=== PATIENT | male | born 1960 | race Caucasian/White ===

== ENCOUNTER 2017-02-25 16:53 | Emergency (ER) | payer OTHER ==
[~2017-02-25] VITALS: Ht 175.3 cm; Wt 90.7 kg
[2017-02-25 17:08] VITALS: BP_SYST 151
[2017-02-25 17:50] LABS: BASOPHILS # (AUTO) 0.2 K/uL (0.0-0.2); EOSINOPHILS # (AUTO) 0.2 K/uL (0.0-0.4); NEUTROPHILS # (AUTO) 9.3 K/uL (1.8-7.7); WHITE BLOOD COUNT (AUTO) 12.6 K/uL (4.8-10.8)
[2017-02-25 17:54] LABS: BASOPHILS % (AUTO) 1.3 % (0.0-2.0); EOSINOPHILS % (AUTO) 1.5 % (0.0-4.0); HEMATOCRIT 47.8 % (36-54); HEMOGLOBIN 15.9 g/dL (14.0-18.0); LYMPHOCYTES # (AUTO) 2.2 K/uL (1.0-5.5); LYMPHOCYTES % (AUTO) 17.6 % (20.5-51.5); MEAN CORPUSCULAR HEMOGLOBIN 28 pg (27-31); MEAN CORPUSCULAR HGB CONC 33 % (32-36); MEAN CORPUSCULAR VOLUME 85 fL (79.0-98.0); MONOCYTES # (AUTO) 0.7 K/uL (0.0-1.0); MONOCYTES % (AUTO) 5.4 % (1.7-9.3); NEUTROPHILS % (AUTO) 74.2 % (40.0-70.0); PLATELET COUNT (AUTO) 181 K/uL (130-430); RED CELL DISTRIBUTION WIDTH 12.2 % (9.0-15.0)
[2017-02-25 17:56] LABS: CALCIUM 8.3 mg/dL (8.4-11.0); CREATININE 1.17 mg/dL (0.55-1.30); POTASSIUM 3.9 mmol/L (3.5-5.1)
[2017-02-25 18:00] LABS: ALBUMIN 3.7 g/dL (3.4-4.8); TOTAL BILIRUBIN 0.6 mg/dL (0.0-1.0); TOTAL PROTEIN, SERUM 7.1 g/dL (6.4-8.3); URIC ACID 3.3 mg/dL (2.4-7.0)
[2017-02-25] MEDS ORDERED: KETOROLAC TROMETHAMINE 60 MG/2 ML VIAL IM ONE (18:00)
[2017-02-25] MEDS ORDERED: cefTRIAXone 1 GM VIAL IM ONE (18:15)
[2017-02-25] MEDS ORDERED: LIDOCAINE 1%, 20 ML MDV 20 ML ONE (18:33)
[2017-02-25 18:50] VITALS: BP_SYST 148
[2017-02-25 18:53] LABS: ERYTHROCYTE SEDIMENTATION RATE 1 MM/HR (0-15)
== END 2017-02-25 18:50 | disposition home or self-care (01) ==
LOC: SED 16:53
DX: L03.114 Cellulitis of left upper limb (principal); E11.9 Type 2 diabetes mellitus without complications; I10 Essential (primary) hypertension; F17.200 Nicotine dependence, unspecified, uncomplicated; Z88.1 Allergy status to other antibiotic agents
CPT/HCPCS: 36415; 73070; 80053; 84550; 85025; 85651; 87040; 96372; 99285; J0696; J1885; J2001

== ENCOUNTER 2017-03-11 18:57 | Inpatient (IN) | payer OTHER ==
[~2017-03-11] VITALS: Ht 175.3 cm; Wt 90.7 kg
[2017-03-11 19:02] VITALS: BP 129/84; PULSE 102; RESP 18; TEMP 97.3; O2SAT 96
--- NOTE | 2017-03-11 19:39 | NUR ---
Patient to ER bed 06 to gown for evaluation. Side rails up. Report given to Yessenia
--- NOTE | 2017-03-11 19:50 | NUR ---
ER at bedside examining patient.
--- NOTE | 2017-03-11 19:55 | NUR ---
PT IN BED 6 WITH C/O LEFT FOREARM PAIN AND SWELLING . DR PAREDES AWARE.
[2017-03-11 20:18] LABS: BASOPHILS % (AUTO) 0.5 % (0.0-2.0); EOSINOPHILS # (AUTO) 0.2 K/uL (0.0-0.4); EOSINOPHILS % (AUTO) 1.9 % (0.0-4.0); HEMATOCRIT 45.5 % (36-54); HEMOGLOBIN 15.3 g/dL (14.0-18.0); LYMPHOCYTES % (AUTO) 30.9 % (20.5-51.5); MEAN CORPUSCULAR HEMOGLOBIN 28 pg (27-31); MEAN CORPUSCULAR HGB CONC 34 % (32-36); MEAN CORPUSCULAR VOLUME 85 fL (79.0-98.0); MONOCYTES # (AUTO) 0.5 K/uL (0.0-1.0); MONOCYTES % (AUTO) 5.2 % (1.7-9.3); NEUTROPHILS # (AUTO) 6.1 K/uL (1.8-7.7); NEUTROPHILS % (AUTO) 61.5 % (40.0-70.0); PLATELET COUNT (AUTO) 264 K/uL (130-430); RED BLOOD CELL COUNT(AUTO) 5.39 MIL/uL (4.2-6.2); RED CELL DISTRIBUTION WIDTH 12.6 % (9.0-15.0); WHITE BLOOD COUNT (AUTO) 9.8 K/uL (4.8-10.8)
[2017-03-11 20:21] LABS: CALCIUM 8.7 mg/dL (8.4-11.0); CREATININE 1.21 mg/dL (0.55-1.30); POTASSIUM 4.1 mmol/L (3.5-5.1)
[2017-03-11 20:24] LABS: PROTHROMBIN TIME 10.4 SECS (9.5-12.5)
[2017-03-11 20:26] LABS: ALBUMIN 3.4 g/dL (3.4-4.8); TOTAL BILIRUBIN 0.2 mg/dL (0.0-1.0); TOTAL PROTEIN, SERUM 7.4 g/dL (6.4-8.3)
[2017-03-11] MEDS ORDERED: NACL 0.9% 1,000 ML IV ONE (20:30)
[2017-03-11] MEDS ORDERED: VANCOMYCIN HCL 1,000 MG in NS 250 ML IV ONE (20:30)
--- NOTE | 2017-03-11 21:30 | NUR ---
# 20 gauge angiocath placed to LAC. Use of asceptic technique. Opsite placed over site. Blood return noted. Blood for lab drawn from site. Flushed with 10 cc of normal saline. No evidence of infiltration noted. Patient tolerated well.
[2017-03-11] MEDS ORDERED: VANCOMYCIN HCL 1000 MG/VIAL IV ONE (21:35)
--- NOTE | 2017-03-11 22:28 | NUR ---
Patient will be admitted to care of Dr Yoon. Admitted to m/s unit. Will go to room 123a. Belongings list completed. Summary report printed. Report will be given at bedside.
--- NOTE | 2017-03-11 22:43 | NUR ---
ADMISSION: The patient, LAWRENCE ZAMAN, 56 y/o, M admitted by KEYONA TRAN MD, was given written information regarding hospital policies, unit procedures and contact persons.
--- NOTE | 2017-03-11 22:44 | NUR ---
CONSULTATION PAGED REASON FOR CONSULTATION:CELLULITIS WAS CONSULT CALLED?Y PERSON WHO WAS NOTIFIED:GHAZALA CONSULTING PHYSICIAN:MEGA ROE [employer] SPECIALTY:INFECTIOUS DISEASE [employer] PHONE NUMBER:[phone]
[2017-03-11 22:48] VITALS: BP 139/92; PULSE 87; RESP 18; TEMP 97.9; O2SAT 99
[2017-03-11] MEDS ORDERED: ACETAMINOPHEN 325 MG TABLET PO PRN (23:15)
[2017-03-12] MEDS ORDERED: NS 500 ML IV ONE
[2017-03-12] MEDS ORDERED: LEVOFLOXACIN 500 MG/D5W 100 ML IV SCH
--- NOTE | 2017-03-12 00:26 | NUR ---
Photo picture taken of left elbow arm areas , dx cellulitis .
--- NOTE | 2017-03-12 00:27 | NUR ---
BSG recheck 251 mg dl patient awake alert ambulatory .
--- NOTE | 2017-03-12 00:28 | NUR ---
Patient verbalize is non compliant with [facility] DM Diet at home & has SODA & CANDY before trip to ER , DR TRAN is aware .
[2017-03-12] MEDS ORDERED: LEVOFLOXACIN 500 MG/D5W 100 ML IV ONE (01:12)
[2017-03-12] MEDS: NACL 0.9% 1,000 ML IV SCH ×3 (01:18→14:41)
--- NOTE | 2017-03-12 04:04 | NUR ---
LEVAQUIN 500 MG IVPB administer as ordered no allergic reaction skin dry warm / .
[2017-03-12 04:15] VITALS: BP 134/56; PULSE 78; RESP 16; TEMP 97.6; O2SAT 95
[2017-03-12] MEDS: INSULIN REGULAR, HUMAN 100 UNITS/ML, 10 ML VIAL (novoLIN R) SUBCUT PRN ×4 (06:19→21:31)
--- NOTE | 2017-03-12 06:37 | NUR ---
BSG @ 266 dl this AM 6 units of Regular insulin sub q. administer , patient awake and alert / .
[2017-03-12 06:46] LABS: CALCIUM 8.2 mg/dL (8.4-11.0); CREATININE 0.94 mg/dL (0.55-1.30); POTASSIUM 4.4 mmol/L (3.5-5.1)
[2017-03-12 06:58] LABS: BASOPHILS % (AUTO) 0.4 % (0.0-2.0); EOSINOPHILS # (AUTO) 0.2 K/uL (0.0-0.4); HEMOGLOBIN 14.1 g/dL (14.0-18.0); LYMPHOCYTES # (AUTO) 2.6 K/uL (1.0-5.5); LYMPHOCYTES % (AUTO) 31.6 % (20.5-51.5); MEAN CORPUSCULAR HEMOGLOBIN 28 pg (27-31); MEAN CORPUSCULAR HGB CONC 33 % (32-36); MEAN CORPUSCULAR VOLUME 86 fL (79.0-98.0); MONOCYTES # (AUTO) 0.5 K/uL (0.0-1.0); PLATELET COUNT (AUTO) 277 K/uL (130-430); RED BLOOD CELL COUNT(AUTO) 4.98 MIL/uL (4.2-6.2); RED CELL DISTRIBUTION WIDTH 12.3 % (9.0-15.0); WHITE BLOOD COUNT (AUTO) 8.3 K/uL (4.8-10.8)
--- NOTE | 2017-03-12 07:23 | NUR ---
AM ROUNDS Pt A/O x4, denies pain at this time..IVF infusing well to LAC...Left elbow pinkish-reddish and warm to touch..Pt ambulates ad makenna with steady gait...Call light/phone w/in reach....Will cont to monitor
[2017-03-12 07:52] LABS: ERYTHROCYTE SEDIMENTATION RATE 3 MM/HR (0-15)
--- NOTE | 2017-03-12 10:10 | NUR ---
PT AMBULATING IN ROOM W/STEADY GAIT
--- NOTE | 2017-03-12 10:10 | NUR ---
DR TRAN DISCUSSING PLAN OF CARE WITH PT AND PTs DAUGHTER
[2017-03-12] MEDS ORDERED: LISINOPRIL 10 MG TABLET (PRINIVIL) PO ONE (10:45)
[2017-03-12] MEDS: VANCOMYCIN HCL 1,250 MG in NS 250 ML IV SCH ×2 (11:02→22:37)
[2017-03-12 11:33] VITALS: BP 141/83; PULSE 74; RESP 19; TEMP 99.1; O2SAT 97
--- NOTE | 2017-03-12 12:00 | NUR ---
PT AMBULATING IN HALLWAY WITH STEADY GAIT
--- NOTE | 2017-03-12 14:13 | NUR ---
PT AMBULATED TO RESTROOM WITH STEADY GAIT
--- NOTE | 2017-03-12 15:35 | NUR ---
NEW IV PLACED TO RFA 20g PER MRI..PLEASE RELOCATE IV ACCESS TO RIGHT ARM
--- NOTE | 2017-03-12 15:36 | NUR ---
PER DR CARR..UNABLE TO DO MRI DUE TO POSSIBLE METALLIC SHRAPNEL IN BUE. DUE TO PTS JOB DESCRIPTION...DR TRAN INFORMED...CT ORDERED INSTEAD..PT INFORMED
[2017-03-12 15:37] VITALS: BP 144/86; PULSE 82; RESP 16; TEMP 97.9; O2SAT 97
--- NOTE | 2017-03-12 16:08 | NUR ---
PT TRANSPORTED TO CT VIA WC PT STABLE UPON TRANSPORT
--- NOTE | 2017-03-12 17:01 | NUR ---
PT STABLE...AMBULATING IN ROOM WILL CONT TO MONITOR
[2017-03-12] MEDS: SIMVASTATIN 10 MG TABLET PO SCH (17:44)
[2017-03-12] MEDS: metFORMIN HCL 500 MG TABLET PO SCH (17:45)
[2017-03-12] MEDS ORDERED: LOVASTATIN 20 MG TABLET PO SCH (18:00)
--- NOTE | 2017-03-12 19:25 | NUR ---
initial nursing notes: Patient awake in bed. Patient has IV fluid infusing on the left AC IV access. Patient denies of having pain.
[2017-03-12 19:51] VITALS: BP 137/89; PULSE 67; RESP 17; TEMP 98.2; O2SAT 96
[2017-03-12] MEDS: LEVOFLOXACIN 500 MG/D5W 100 ML IV SCH (21:20)
[2017-03-12] MEDS: LACTOBACILLUS RHAMNOSUS GG 1 CAP CAPSULE PO SCH (21:22)
--- NOTE | 2017-03-12 21:25 | NUR ---
nursing rounds: Patient watching television. Will check patient's blood sugar.
--- NOTE | 2017-03-12 23:25 | NUR ---
nursing rounds: Patient asleep in bed. Patient has no shortness of breath.
[2017-03-13 00:30] VITALS: BP 137/77; PULSE 70; RESP 20; TEMP 98.2; O2SAT 98
--- NOTE | 2017-03-13 01:25 | NUR ---
nursing rounds: Patient sleeping in bed. Patient's breathing pattern is regular and unlabored.
--- NOTE | 2017-03-13 03:27 | NUR ---
nursing rounds: Patient asleep in bed. Patient has no respiratory distress.
[2017-03-13 04:08] VITALS: BP 127/87; PULSE 76; RESP 20; TEMP 98.7; O2SAT 96
--- NOTE | 2017-03-13 05:25 | NUR ---
nursing rounds: Patient calmly resting in bed. Call light within patient's reach.
[2017-03-13] MEDS: NACL 0.9% 1,000 ML IV SCH ×2 (06:16→16:47)
[2017-03-13] MEDS: INSULIN REGULAR, HUMAN 100 UNITS/ML, 10 ML VIAL (novoLIN R) SUBCUT PRN ×4 (06:19→21:48)
--- NOTE | 2017-03-13 07:25 | NUR ---
am rounds: patient awake ,lying on the bed. report given by night nurse myke. ivf on going at left ac intact. stable.
--- NOTE | 2017-03-13 07:32 | NUR ---
closing nursing notes: Patient is awake, alert and oriented X 4. Patient is in no acute respiratory distress. No episodes of fall and no injuries throughout the round boner. Provided nursing report to incoming morning shift nurse, MARYA Sheehan, at patient's bedside.
[2017-03-13 09:18] VITALS: BP 135/89; PULSE 78; RESP 19; TEMP 97.4; O2SAT 94
--- NOTE | 2017-03-13 09:20 | NUR ---
rounds: sitting on the chair. stable.
[2017-03-13] MEDS: LACTOBACILLUS RHAMNOSUS GG 1 CAP CAPSULE PO SCH ×2 (09:22→21:42)
[2017-03-13] MEDS: metFORMIN HCL 500 MG TABLET PO SCH ×2 (09:22→17:19)
[2017-03-13] MEDS: VANCOMYCIN HCL 1,250 MG in NS 250 ML IV SCH ×2 (09:23→22:48)
[2017-03-13] MEDS: LISINOPRIL 10 MG TABLET (PRINIVIL) PO SCH (09:28)
--- NOTE | 2017-03-13 11:30 | NUR ---
blood sugar: blood sugar taken,with insulin coverage given per sliding scale.
[2017-03-13 11:33] VITALS: BP 141/96; PULSE 71; RESP 19; TEMP 97.2; O2SAT 96
--- NOTE | 2017-03-13 13:42 | NUR ---
rounds: sitting on the chair. waiting for md to clear patient home.
--- NOTE | 2017-03-13 14:36 | NUR ---
SURGEON ROUNDS: PATIENT SEEN BY DR COLES WITH ORDERS FOR I&D OF LEFT FOREARM TOMORROW.NPO POST MIDNIGHT.CONSENT TO SIGN BY PATIENT.
[2017-03-13 15:41] VITALS: BP 141/88; PULSE 68; RESP 19; TEMP 98.4; O2SAT 98
--- NOTE | 2017-03-13 16:20 | NUR ---
rounds: watching tv.stable.
[2017-03-13] MEDS: SIMVASTATIN 10 MG TABLET PO SCH (17:23)
--- NOTE | 2017-03-13 17:25 | NUR ---
blood sugar: blood sugar taken,with insulin coverage given per sliding scale.
--- NOTE | 2017-03-13 18:25 | NUR ---
CLOSING NOTES: STABLE. HAD DINNER. STILL WITH MILD REDNESS AND SWELLING LEFT FOREARM. FOR I&D OF LEFT FOREARM BY DR COLES IN AM.
[2017-03-13 20:00] VITALS: BP 134/75; PULSE 66; RESP 18; TEMP 96.9; O2SAT 95
--- NOTE | 2017-03-13 20:00 | NUR ---
Initial PM Note Pt was received lying in bed fully AAO x4. No acute distress noted. Speech is clear and pt is able to make his needs known. Lt elbow swelling noted. Neurovascular checks to E are WNL. Pt is able to move his fingers freely and all his fingers are with good capillary refills. Pt denies pain or discomfort. Pt stated swelling is subsiding. Pt was instructed on nothing by mouth after midnight for surgery tomorrow and pt verbalized understanding. IVF of NS is infusing well in RAC at 100ml/hr without any signs of infiltration at the IV site. Skin is warm and dry to touch. No signs or symptoms of hypoglycemia or hyperglycemia noted. Fall and safety precautions are in place. Call light is with pt. Bed is in the lowest and locked positions. Pt was instructed to call for assistance as needed and pt verbalized understanding.
[2017-03-13] MEDS: LEVOFLOXACIN 500 MG/D5W 100 ML IV SCH (21:43)
--- NOTE | 2017-03-13 23:00 | NUR ---
Rounds Pt is sleeping comfortably in bed. Call light is with pt and IVF is infusing well.
[2017-03-14] VITALS (7 sets, daily range): BP systolic 132–149; BP diastolic 75–95; PULSE 60–78; RESP 18–19; TEMP 97.2–97.8; O2SAT 91–99; Ht 175.3 cm; Wt 90.7 kg
[2017-03-14] MEDS: NACL 0.9% 1,000 ML IV SCH ×3 (01:15→20:24)
--- NOTE | 2017-03-14 02:00 | NUR ---
Rounds Pt is sleeping comfortably in bed. IVF is infusing well.
--- NOTE | 2017-03-14 04:30 | NUR ---
Rounds Pt is sleeping without any distress noted. Call light is with pt and IVF is infusing well.
--- NOTE | 2017-03-14 06:49 | NUR ---
Closing Note Pt is resting comfortably in bed at this time. All pt's needs were attended to. No fall or injury noted this shift. Accucheck 238 this AM and sliding scale Insulin held due to NPO status. AM Glucotrol also held. Will endorse to day shift nurse.
[2017-03-14 07:29] LABS: BASOPHILS # (AUTO) 0.1 K/uL (0.0-0.2); BASOPHILS % (AUTO) 0.7 % (0.0-2.0); EOSINOPHILS # (AUTO) 0.2 K/uL (0.0-0.4); EOSINOPHILS % (AUTO) 3.1 % (0.0-4.0); HEMATOCRIT 40.8 % (36-54); LYMPHOCYTES # (AUTO) 2.3 K/uL (1.0-5.5); LYMPHOCYTES % (AUTO) 31.5 % (20.5-51.5); MEAN CORPUSCULAR HEMOGLOBIN 29 pg (27-31); MEAN CORPUSCULAR HGB CONC 34 % (32-36); MEAN CORPUSCULAR VOLUME 84 fL (79.0-98.0); MONOCYTES # (AUTO) 0.5 K/uL (0.0-1.0); MONOCYTES % (AUTO) 6.7 % (1.7-9.3); NEUTROPHILS # (AUTO) 4.1 K/uL (1.8-7.7); PLATELET COUNT (AUTO) 256 K/uL (130-430); RED BLOOD CELL COUNT(AUTO) 4.86 MIL/uL (4.2-6.2); WHITE BLOOD COUNT (AUTO) 7.2 K/uL (4.8-10.8)
[2017-03-14 07:41] LABS: CALCIUM 8.3 mg/dL (8.4-11.0); CREATININE 0.95 mg/dL (0.55-1.30); POTASSIUM 4.2 mmol/L (3.5-5.1)
[2017-03-14] MEDS: metFORMIN HCL 500 MG TABLET PO SCH ×2 (08:00→18:04)
[2017-03-14] MEDS: VANCOMYCIN HCL 1,250 MG in NS 250 ML IV SCH ×2 (08:52→22:04)
[2017-03-14] MEDS ORDERED: MIDAZOLAM HCL 5 MG/5 ML VIAL IVP ONE (09:00)
[2017-03-14] MEDS ORDERED: NS IRRIG SOLN 1000 ML IR ONE (09:00)
[2017-03-14] MEDS ORDERED: LR 1,000 ML IV.SOLN IV ONE (09:00)
[2017-03-14] MEDS ORDERED: PROPOFOL 200MG/ 20ML VIAL (DIPRIVAN) IV ONE (09:00)
[2017-03-14] MEDS: LACTOBACILLUS RHAMNOSUS GG 1 CAP CAPSULE PO SCH ×2 (09:00→20:23)
[2017-03-14] MEDS ORDERED: ONDANSETRON HCL 4 MG/2 ML VIAL IVP ONE (09:00)
[2017-03-14] MEDS ORDERED: VANCOMYCIN HCL 1000 MG/VIAL IV ONE (09:00)
[2017-03-14] MEDS ORDERED: NS 250 ML BAG IV ONE (09:00)
[2017-03-14] MEDS ORDERED: SEVOFLURANE 15 MIN GAS INH ONE (09:00)
[2017-03-14] MEDS ORDERED: fentaNYL CITRATE 250 MCG/5 ML AMP IV ONE (09:00)
--- NOTE | 2017-03-14 09:02 | NUR ---
Patient transported out to OR
[2017-03-14] MEDS ORDERED: HYDROmorphone 2 MG/ML VIAL IVP PRN (10:00)
[2017-03-14] MEDS ORDERED: HYDROmorphone 1 MG INJ. 1 MG/ML AMPUL IVP PRN ×2 (10:00)
[2017-03-14] MEDS ORDERED: NACL 0.9% 1,000 ML IV SCH (10:00)
[2017-03-14] MEDS ORDERED: METOCLOPRAMIDE HCL 10 MG/2 ML VIAL IVP PRN (10:00)
[2017-03-14] MEDS ORDERED: HYDROmorphone 1 MG INJ. 1 MG/ML AMPUL ONE (10:05)
--- NOTE | 2017-03-14 11:00 | NUR ---
Patient back from OR. stable, call light in reach.
--- NOTE | 2017-03-14 13:00 | NUR ---
Left arm dressing reinforced due to noted soilage with serosanguineous drainage.
[2017-03-14] MEDS: LISINOPRIL 10 MG TABLET (PRINIVIL) PO SCH (13:43)
[2017-03-14] MEDS: INSULIN REGULAR, HUMAN 100 UNITS/ML, 10 ML VIAL (novoLIN R) SUBCUT PRN ×3 (13:48→20:27)
--- NOTE | 2017-03-14 17:30 | NUR ---
Dinner provided. Pt tolerating diet well. Call light in reach.
[2017-03-14] MEDS: SIMVASTATIN 10 MG TABLET PO SCH (18:05)
--- NOTE | 2017-03-14 19:00 | NUR ---
Closng note Patient ambulating in the hallway and room, stable, non slip socks provided. Pt stable at this time. Will endorse report to daxa farias RN.
--- NOTE | 2017-03-14 20:00 | NUR ---
Initial PM Note Pt was received lying in bed fully AAO x4. No acute distress noted. Speech is clear and pt is able to make his needs known. Lt elbow dressing is dry and intact. Neurovascular checks to E are WNL. Pt is able to move his fingers freely and all his fingers are with good capillary refills. Pt denies pain or discomfort at this time. IVF of NS is infusing well in RAC at 100ml/hr without any signs of infiltration at the IV site. Skin is warm and dry to touch. No signs or symptoms of hypoglycemia or hyperglycemia noted. Fall and safety precautions are in place. Call light is with pt. Bed is in the lowest and locked positions. Pt was instructed to call for assistance as needed and pt verbalized understanding.
[2017-03-14] MEDS: LEVOFLOXACIN 500 MG/D5W 100 ML IV SCH (20:23)
--- NOTE | 2017-03-14 20:27 | NUR ---
Blood Sugar Accucheck 154 and 2 units Regular Insulin given SQ. Pt was given HS snacks and he ate 100%.
[2017-03-14 22:48] LABS: BILIRUBIN,URINE NEGATIVE (NEGATIVE); BLOOD, URINE NEGATIVE (NEGATIVE); CLARITY/URINE CLEAR (CLEAR); COLOR,URINE YELLOW (YELLOW); GLUCOSE,URINE 2+ (NEGATIVE); KETONES,URINE NEGATIVE (NEGATIVE); LEUKOCYTE ESTERASE ,URINE NEGATIVE (NEGATIVE); NITRITE, URINE NEGATIVE (NEGATIVE); PROTEIN URINE NEGATIVE (NEGATIVE); UROBILINOGEN,URINE 0.2 (0.2-1.0)
--- NOTE | 2017-03-14 23:00 | NUR ---
Rounds Pt is sleeping comfortably in bed. Lt elbow dressing remains clean and dry. Call light is with pt and IVF is infusing well.
[2017-03-14 23:13] LABS: BACTERIA,URINE RARE /HPF (None Seen); RBC,URINE NONE SEEN /HPF (0-3); WBC,URINE NONE SEEN /HPF (0-3)
[2017-03-14 23:14] LABS: MUCUS,URINE None Seen /LPF (None Seen)
--- NOTE | 2017-03-15 02:00 | NUR ---
Rounds Pt is sleeping comfortably in bed. IVF is infusing well.
[2017-03-15 03:47] VITALS: BP 147/88; PULSE 74; RESP 18; TEMP 98; O2SAT 95
--- NOTE | 2017-03-15 05:00 | NUR ---
Rounds Pt is sleeping without any distress noted. Fall and safety precautions are in place.
--- NOTE | 2017-03-15 06:30 | NUR ---
Closing Note Pt is resting comfortably in bed at this time. All pt's needs were attended to. No fall or injury noted this shift. Will endorse to day shift nurse.
[2017-03-15] MEDS: INSULIN REGULAR, HUMAN 100 UNITS/ML, 10 ML VIAL (novoLIN R) SUBCUT PRN ×3 (06:41→21:49)
[2017-03-15] MEDS: NACL 0.9% 1,000 ML IV SCH ×2 (07:15→17:59)
[2017-03-15 08:00] VITALS: BP 145/98; PULSE 80; RESP 18; TEMP 97.8; O2SAT 95
--- NOTE | 2017-03-15 08:00 | NUR ---
OPENING NOTES; SEEN PT IN BED, NO SOB NO DISTRESS, PT IS AAO4X, DENIES PAIN, IV FLUIDS RUNNING WELL. CALL LIGHT IN REACH, BED IN LOW POSITION. WILL CONT TO MONITOR.
[2017-03-15] MEDS: LACTOBACILLUS RHAMNOSUS GG 1 CAP CAPSULE PO SCH ×2 (08:41→20:55)
[2017-03-15] MEDS: LISINOPRIL 10 MG TABLET (PRINIVIL) PO SCH (08:42)
[2017-03-15] MEDS: metFORMIN HCL 500 MG TABLET PO SCH ×2 (08:43→17:55)
[2017-03-15] MEDS: VANCOMYCIN HCL 1,250 MG in NS 250 ML IV SCH ×2 (08:46→21:47)
--- NOTE | 2017-03-15 10:00 | NUR ---
ROUNDING NOTES; SEEN PT IN BED, NO SOB NO DISTRESS, DENIES PAIN, IV FLUIDS RUNNING WELL. CALL LIGHT IN REACH, BED IN LOW POSITION. WILL CONT TO MONITOR.
--- NOTE | 2017-03-15 12:00 | NUR ---
ROUNDING NOTES; SEEN PT IN BED, NO SOB NO DISTRESS, DENIES PAIN, IV FLUIDS RUNNING WELL. CALL LIGHT IN REACH, BED IN LOW POSITION. WILL CONT TO MONITOR
[2017-03-15 12:03] VITALS: BP 150/87; PULSE 72; RESP 16; TEMP 97.8; O2SAT 93
--- NOTE | 2017-03-15 14:00 | NUR ---
ROUNDING NOTES; SEEN PT IN BED, NO SOB NO DISTRESS, DENIES PAIN, FAMILY AT BEDSIDE . CALL LIGHT IN REACH, BED IN LOW POSITION. WILL CONT TO MONITOR
--- NOTE | 2017-03-15 16:00 | NUR ---
rounding notes, pt sitting in chair, no sob, no distress, will continue to monitor.
[2017-03-15 16:20] VITALS: BP 101/64; PULSE 96; RESP 16; TEMP 98.6; O2SAT 100
[2017-03-15] MEDS: SIMVASTATIN 10 MG TABLET PO SCH (17:55)
--- NOTE | 2017-03-15 18:00 | NUR ---
rounding notes, patient in chair, visitor at bedside. no c/o pain. call light in reach, bed in low position. will cont to monitor.
--- NOTE | 2017-03-15 19:14 | NUR ---
closing notes. endorsed to night nurse, pt remained a/0 4x, given tylenol for l arm pain after wound care. no untoward incident. patient is aware that we are still waiting for the final result of the wound culture.
--- NOTE | 2017-03-15 19:15 | NUR ---
OPENING NOTES PATIENT SITTING IN CHAIR AT BEDSIDE IN GOOD SPIRITS. PATIENTS BREATHING IS EVEN AND UNLABORED. PATIENT STATES ELBOW PAIN 04/21, AND EDUCATED ON THE TIMELINE OF THE 1900 ADMINISTERED TYLENOL AND THE TIMING FOR MEDICATION TO TAKE AFFECT. BED IN LOWEST POSITION, CALL LIGHT IN HAND.
[2017-03-15 20:15] VITALS: BP 143/78; PULSE 64; RESP 16; TEMP 97.8; O2SAT 97
[2017-03-15] MEDS: LEVOFLOXACIN 500 MG/D5W 100 ML IV SCH (20:55)
--- NOTE | 2017-03-15 21:00 | NUR ---
IV PLACEMENT: # 20 gauge angiocath placed to Right forearm. Use of asceptic technique. Opsite placed over site. Blood return noted. Flushed with 10 cc of normal saline. No evidence of infiltration noted. Patient tolerated well.
--- NOTE | 2017-03-15 22:00 | NUR ---
ROUNDS PATIENT SITTING IN CHAIR BY BEDSIDE. FAMILY AT BEDSIDE. IV PATENT AND INFUSING ANTIBIOTICS. NO ACUTE S/S OF DISTRESS NOTED. DRESSING TO LEFT ELBOW DRY AND INTACT. CALL LIGHT WITHIN REACH.
--- NOTE | 2017-03-16 | NUR ---
ROUNDS PATIENT IS SLEEPING WITH VISIBLE RISE AND FALL OF CHEST NOTED, AUDIBLE SNORING. IV INFUSING WITH NO SIGNS OF INFILTRATION. BED IN LOWEST POSITION, CALL LIGHT WITHIN REACH. WILL CONTINUE TO MONITOR.
[2017-03-16 00:12] VITALS: BP 149/89; PULSE 59; RESP 20; TEMP 97.5; O2SAT 96
[2017-03-16] MEDS: NACL 0.9% 1,000 ML IV SCH (03:15)
[2017-03-16 05:04] VITALS: BP 139/74; PULSE 70; RESP 18; TEMP 98.4; O2SAT 96
--- NOTE | 2017-03-16 05:07 | NUR ---
ROUNDS PATIENT CALLED STATING IV PUMP WAS BEEPING. IV FLUSHED, PATENT, NO SIGNS OF INFILTRATION NOTED. NO ACUTE S/S OF DISTRESS. BED IN LOWEST POSITION. GURPREET LIGHT WITHIN REACH.
[2017-03-16] MEDS: INSULIN REGULAR, HUMAN 100 UNITS/ML, 10 ML VIAL (novoLIN R) SUBCUT PRN ×2 (06:12→11:51)
--- NOTE | 2017-03-16 06:27 | NUR ---
CLOSING NOTES PATIENT IS SITTING UP IN BED IN GOOD SPIRITS. IV IS INFUSING, NO SIGNS OF INFILTRATION. PATIENT HAS EVEN AND UNLABORED BREATHING. NO S/S OF ACUTE DISTRESS NOTED. BED IN LOWEST POSITION, CALL LIGHT WITHIN REACH, WILL ENDORSE CARE TO DAY SHIFT NURSE.
[2017-03-16 07:11] LABS: BASOPHILS % (AUTO) 0.6 % (0.0-2.0); EOSINOPHILS # (AUTO) 0.2 K/uL (0.0-0.4); EOSINOPHILS % (AUTO) 3.8 % (0.0-4.0); HEMATOCRIT 42.7 % (36-54); HEMOGLOBIN 13.9 g/dL (14.0-18.0); LYMPHOCYTES # (AUTO) 2.2 K/uL (1.0-5.5); LYMPHOCYTES % (AUTO) 33.1 % (20.5-51.5); MEAN CORPUSCULAR HEMOGLOBIN 28 pg (27-31); MEAN CORPUSCULAR HGB CONC 33 % (32-36); MEAN CORPUSCULAR VOLUME 87 fL (79.0-98.0); MONOCYTES # (AUTO) 0.5 K/uL (0.0-1.0); MONOCYTES % (AUTO) 7.6 % (1.7-9.3); NEUTROPHILS # (AUTO) 3.6 K/uL (1.8-7.7); NEUTROPHILS % (AUTO) 54.9 % (40.0-70.0); PLATELET COUNT (AUTO) 283 K/uL (130-430); RED BLOOD CELL COUNT(AUTO) 4.91 MIL/uL (4.2-6.2); RED CELL DISTRIBUTION WIDTH 12.3 % (9.0-15.0); WHITE BLOOD COUNT (AUTO) 6.5 K/uL (4.8-10.8)
[2017-03-16 07:15] LABS: CREATININE 1.06 mg/dL (0.55-1.30)
[2017-03-16 08:39] VITALS: BP 144/79; PULSE 69; RESP 18; TEMP 97.7; O2SAT 92
[2017-03-16 09:16] LABS: CALCIUM 8.6 mg/dL (8.4-11.0)
[2017-03-16] MEDS: VANCOMYCIN HCL 1,250 MG in NS 250 ML IV SCH (10:12)
[2017-03-16] MEDS: LACTOBACILLUS RHAMNOSUS GG 1 CAP CAPSULE PO SCH (10:12)
[2017-03-16] MEDS: LISINOPRIL 10 MG TABLET (PRINIVIL) PO SCH (10:12)
[2017-03-16] MEDS: metFORMIN HCL 500 MG TABLET PO SCH (10:18)
[2017-03-16 12:07] VITALS: BP 139/81; PULSE 58; RESP 18; TEMP 98; O2SAT 96
[2017-03-16] MEDS ORDERED: DOXY100T2 PO (13:14)
[2017-03-16 13:48] VITALS: BP 145/92; PULSE 83; RESP 16; TEMP 96.9; O2SAT 97
--- NOTE | 2017-03-16 15:06 | NUR ---
D/C Patient Patient given medication reconciliation form and D/C instructions. Exit Care provided. Patient verbalized understanding. MD discussed with patient the results and treatment provided. Ambulatory with steady gait for discharge to home. Patient in stable condition, ID band removed. IV catheter removed, intact and dressing applied, no active bleeding. Rx reconciliation List given. Patient educated on pain management. All belongings sent with patient.
== END 2017-03-16 14:30 | disposition home or self-care (01) | DRG 720 ==
LOC: SED 18:57 → SMU 22:12
PROVIDERS: ADMIT Internal Medicine; ATTEND Internal Medicine
PROC: 0H9EXZX Drainage of Left Lower Arm Skin, External Approach, Diagnostic (ICD-10-PCS; principal; 2017-03-14 09:00)
DX: A41.9 Sepsis, unspecified organism (principal); E11.65 Type 2 diabetes mellitus with hyperglycemia; I10 Essential (primary) hypertension; L03.114 Cellulitis of left upper limb; E66.9 Obesity, unspecified; E78.5 Hyperlipidemia, unspecified; J45.909 Unspecified asthma, uncomplicated; L02.414 Cutaneous abscess of left upper limb; M71.129 Other infective bursitis, unspecified elbow; Z68.29 Body mass index [BMI] 29.0-29.9, adult; Z88.1 Allergy status to other antibiotic agents
CPT/HCPCS: 36415; 73090; 73200-TC; 80048; 80053; 80202-TC; 81000-TC; 82962; 83036; 83605; 84484; 85025; 85610-TC; 85651-TC; 85730-TC; 87040-TC; 87070; 87070-TC; 87075-TC; 87081; 93005; 94010; 96365; 99285; J1170; J1815; J1956; J2250; J2405; J2704; J3010; J3370; J7030; J7050; J7120

== ENCOUNTER 2018-10-07 15:51 | Emergency (ER) | payer OTHER ==
[~2018-10-07] VITALS: Ht 175.3 cm; Wt 93.0 kg
[~2018-10-07 15:51] MED LIST: DOXY100T2 PO
[2018-10-07 16:30] VITALS: BP_SYST 151
[2018-10-07 17:50] VITALS: BP_SYST 140
== END 2018-10-07 17:50 | disposition home or self-care (01) ==
LOC: SED 15:51
DX: S83.91XA Sprain of unspecified site of right knee, initial encounter (principal); E11.9 Type 2 diabetes mellitus without complications; I10 Essential (primary) hypertension; Z88.1 Allergy status to other antibiotic agents; X50.9XXA Other and unspecified overexertion or strenuous movements or postures, initial encounter; Y93.89 Activity, other specified; Y92.89 Other specified places as the place of occurrence of the external cause; Y99.8 Other external cause status
CPT/HCPCS: 73564; 99283

== ENCOUNTER 2020-10-15 20:10 | Emergency (ER) | payer OTHER ==
[~2020-10-15] VITALS: Ht 175.3 cm; Wt 90.7 kg
[2020-10-15 20:25] VITALS: BP_SYST 158
--- NOTE | 2020-10-15 20:25 | NUR ---
Pt for mild right arm redness, swelling and burning since today. He stated similar symptoms to his left arm prior for a soft tissue infection possibly having required surgery. No alleviating factors. Pain, non radiating, 8/10 PS exacerbated with palpation. No underlying illness, fevers, chills, cough, chest pain, shortness of breath, recent trauma or fall, or other complaints at this time. Patient at rest during onset. No pain meds taken for pain, came straight to ER.
--- NOTE | 2020-10-15 20:25 | NUR ---
ER at bedside examining patient.
[2020-10-15 20:40] VITALS: BP_SYST 148
--- NOTE | 2020-10-15 20:40 | NUR ---
Patient given written and verbal discharge instructions and verbalizes understanding. ER MD discussed with patient the care provided. Patient in stable condition. ID arm band removed. Rx of Cephalexin 500 mg cap given. Patient educated on pain management and to follow up with PMD. Pain Scale 5/10 PS. Opportunity for questions provided and answered.
== END 2020-10-15 20:40 | disposition home or self-care (01) ==
LOC: SED 20:10
DX: L03.113 Cellulitis of right upper limb (principal); I10 Essential (primary) hypertension; E11.9 Type 2 diabetes mellitus without complications
CPT/HCPCS: 82962; 99283

== ENCOUNTER 2022-01-01 20:52 | Emergency (ER) | payer OTHER ==
[~2022-01-01] VITALS: Ht 175.3 cm; Wt 88.5 kg
[2022-01-01 21:02] VITALS: BP_SYST 160
[2022-01-01] MEDS ORDERED: CEPH-548 PO (22:07)
[2022-01-01 22:14] VITALS: BP_SYST 155
== END 2022-01-01 22:14 | disposition home or self-care (01) ==
LOC: SED 20:52
DX: L03.114 Cellulitis of left upper limb (principal); E11.9 Type 2 diabetes mellitus without complications; Z79.899 Other long term (current) drug therapy
CPT/HCPCS: 99283

== ENCOUNTER 2022-12-17 11:11 | Emergency (ER) | payer OTHER ==
[~2022-12-17] VITALS: Ht 172.7 cm; Wt 88.5 kg
[~2022-12-17 11:11] MED LIST changes: +CEPH-548 PO
[2022-12-17 11:27] VITALS: BP_SYST 177
--- NOTE | 2022-12-17 12:04 | NUR ---
COVID AND INFLUENZA SWABS OBTAINED AND SENT TO LAB.
[2022-12-17 12:15] LABS: BASOPHILS # (AUTO) 0.1 K/uL (0.0-0.2); BASOPHILS % (AUTO) 0.9 % (0.0-2.0); EOSINOPHILS # (AUTO) 0.2 K/uL (0.0-0.4); EOSINOPHILS % (AUTO) 3.2 % (0.0-4.0); HEMATOCRIT 44.9 % (36-54); HEMOGLOBIN 15.5 g/dL (14.0-18.0); LYMPHOCYTES # (AUTO) 2.5 K/uL (1.0-5.5); LYMPHOCYTES % (AUTO) 34.5 % (20.5-51.5); MEAN CORPUSCULAR HEMOGLOBIN 30 pg (27-31); MEAN CORPUSCULAR HGB CONC 35 % (32-36); MEAN CORPUSCULAR VOLUME 86 fL (79.0-98.0); MONOCYTES # (AUTO) 0.4 K/uL (0.0-1.0); MONOCYTES % (AUTO) 5.2 % (1.7-9.3); NEUTROPHILS # (AUTO) 4.1 K/uL (1.8-7.7); NEUTROPHILS % (AUTO) 56.2 % (40.0-70.0); PLATELET COUNT (AUTO) 225 K/uL (130-430); RED BLOOD CELL COUNT(AUTO) 5.24 MIL/uL (4.2-6.2); RED CELL DISTRIBUTION WIDTH 13.1 % (9.0-15.0); WHITE BLOOD COUNT (AUTO) 7.3 K/uL (4.8-10.8)
--- NOTE | 2022-12-17 12:16 | NUR ---
MD RUIZ IN TRIAGE FOR MSE
[2022-12-17 12:29] LABS: ANION GAP 8 (5-15); CALCIUM 8.7 mg/dL (8.4-11.0); CHLORIDE 102 mmol/L (98-107); CREATININE 0.92 mg/dL (0.55-1.30); GLUCOSE 338 mg/dL (70-99); UREA NITROGEN, BLOOD 15 mg/dL (8-21)
[2022-12-17 12:31] LABS: GFR AFRICAN AMERICAN 108 mL/min (>90)
[2022-12-17 12:36] LABS: ALANINE AMINOTRANSFERASE 31 U/L (12-78); ALBUMIN 3.7 g/dL (3.4-4.8); ASPARTATE AMINOTRANSFERASE 16 U/L (10-37); TOTAL BILIRUBIN 0.4 mg/dL (0.0-1.0)
[2022-12-17] MEDS ORDERED: ZIT250 PO (13:26)
[2022-12-17] MEDS ORDERED: ALBMDI INH (13:26)
[2022-12-17 13:36] VITALS: BP_SYST 158
--- NOTE | 2022-12-17 13:36 | NUR ---
Patient given written and verbal discharge instructions and verbalizes understanding. ER MD discussed with patient the results and treatment provided. Patient in stable condition. ID arm band removed. IV catheter removed intact and dressing applied, no active bleeding. Rx of ALBUTEROL, AZITHROMYCIN given. Patient educated on pain management and to follow up with PMD. Pain Scale 0/10. Opportunity for questions provided and answered. Medication side effect fact sheet provided.
== END 2022-12-17 13:36 | disposition home or self-care (01) ==
LOC: SED 11:11
DX: J40 Bronchitis, not specified as acute or chronic (principal); R05.9 Cough, unspecified; R09.81 Nasal congestion; J02.9 Acute pharyngitis, unspecified; E11.9 Type 2 diabetes mellitus without complications; I10 Essential (primary) hypertension; F17.210 Nicotine dependence, cigarettes, uncomplicated; Z79.899 Other long term (current) drug therapy; Z20.822 Contact with and (suspected) exposure to COVID-19
CPT/HCPCS: 36415; 71045; 80053; 83880; 84484; 85025; 99284

== ENCOUNTER 2023-02-17 10:04 | Emergency (ER) | payer OTHER ==
[~2023-02-17] VITALS: Ht 175.3 cm; Wt 89.8 kg
[~2023-02-17 10:04] MED LIST changes: +ALBMDI INH; +ZIT250 PO
[2023-02-17 10:10] VITALS: BP_SYST 156
--- NOTE | 2023-02-17 10:15 | NUR ---
Pt brought by self, A&Ox4, pt presents to ER with cough and congestion x 4 days, afebrile, skin pink and warm, cap refill ,3, VSS, will cont to monitor.
--- NOTE | 2023-02-17 11:15 | NUR ---
Patient to ER bed H1 to gown for evaluation. Side rails up.
--- NOTE | 2023-02-17 11:34 | NUR ---
Dr Stuart evaluating patient at bedside
[2023-02-17] MEDS ORDERED: PSEU30TA36 PO (11:43)
[2023-02-17] MEDS ORDERED: ALBMDI INH (11:43)
--- NOTE | 2023-02-17 11:56 | NUR ---
Patient given written and verbal discharge instructions and verbalizes understanding. ER MD discussed with patient the results and treatment provided. Patient in stable condition. ID arm band removed. Rx of SUDAFED AND VENTOLIN INH given. Patient educated on pain management and to follow up with PMD. Pain Scale 0/10. Opportunity for questions provided and answered. Medication side effect fact sheet provided.
== END 2023-02-17 11:56 | disposition home or self-care (01) ==
LOC: SED 10:04
DX: J40 Bronchitis, not specified as acute or chronic (principal); R05.9 Cough, unspecified; R09.81 Nasal congestion; J02.9 Acute pharyngitis, unspecified; E11.9 Type 2 diabetes mellitus without complications; I10 Essential (primary) hypertension; Z79.899 Other long term (current) drug therapy; Z20.822 Contact with and (suspected) exposure to COVID-19
CPT/HCPCS: 36415; 71045; 99284

== ENCOUNTER 2023-05-08 19:43 | Emergency (ER) | payer OTHER ==
[~2023-05-08] VITALS: Ht 175.3 cm; Wt 89.8 kg
[~2023-05-08 19:43] MED LIST changes: +PSEU30TA36 PO
[2023-05-08 20:03] VITALS: BP_SYST 144; PULSE 93; RESP 18; TEMP 98.5; O2SAT 96
[2023-05-08] MEDS ORDERED: DIPHENHYDRAMINE INJ 50 MG/ML VIAL IM ONE (20:45)
[2023-05-08] MEDS ORDERED: IBUPROFEN 400 MG TABLET PO ONE (20:45)
[2023-05-08] MEDS ORDERED: CEPH-548 PO (21:58)
[2023-05-08] MEDS ORDERED: cefTRIAXone 1 GM in LIDOCAINE 1%, 20 ML MDV 2.1 ML IM ONE (22:00)
[2023-05-08 22:08] VITALS: BP_SYST 132; PULSE 82; RESP 16; TEMP 98.5; O2SAT 98
== END 2023-05-08 22:08 | disposition home or self-care (01) ==
LOC: SED 19:43
DX: L03.113 Cellulitis of right upper limb (principal); M25.531 Pain in right wrist; E11.9 Type 2 diabetes mellitus without complications; I10 Essential (primary) hypertension; Z79.899 Other long term (current) drug therapy
CPT/HCPCS: 99284; 96372; J0696; J1200; J2001

== ENCOUNTER 2023-09-02 11:00 | Emergency (ER) | payer OTHER ==
[~2023-09-02] VITALS: Ht 175.3 cm; Wt 89.8 kg
[2023-09-02 11:00] VITALS: BP_SYST 152; PULSE 85; RESP 17; TEMP 97.6; O2SAT 100
[2023-09-02] MEDS ORDERED: METH-776 PO (11:46)
[2023-09-02] MEDS ORDERED: ALBMDI INH (11:46)
[2023-09-02] MEDS ORDERED: CEFU250T85 PO (11:46)
== END 2023-09-02 12:09 | disposition home or self-care (01) ==
LOC: SED 11:00
DX: J45.909 Unspecified asthma, uncomplicated (principal); R05.9 Cough, unspecified; R06.02 Shortness of breath; E11.9 Type 2 diabetes mellitus without complications; I10 Essential (primary) hypertension; Z79.899 Other long term (current) drug therapy
CPT/HCPCS: 99283